=== PATIENT | male | born 1995 | race Caucasian/White ===

== ENCOUNTER 2016-09-18 21:42 | Emergency (ER) | payer MEDICAID ==
[2016-09-18 21:57] VITALS: BP 140/102
--- OUTSIDE RECORDS SUMMARY | 2016-09-18 22:16 | XMS REPORT | Continuity of Care Document ---
:1995 Author Organization [facility] ([facility]) Address [address] [place] [address] Phone [phone] Care Team Providers Name Role Phone Conrado Carson Primary Care Provider [phone] Source Comments This disclosure is being made pursuant to the Care Everywhere program, applicable federal and state laws, and may not contain all informaitonavailable regarding this patient.[facility] ([facility]) Active Allergies and Adverse Reactions Not on File Current Medications Prescription Sig. Disp. Refills Start Date End Date Status polyethylene glycol Take 17 g by mouth 2 1020 g 11 11/27/2009 Active 3350 (MIRALAX) 17 times daily. gram/dose powder Dissolve 4 capfuls (68 grams) in 32 oz clear liquid beverage.Take 8 ounces twice daily.Store unused portion in refrigerator. Indications: Constipation magnesium hydroxide Take 30 mL by mouth 1 Bottle 11 11/28/2009 Active (MILK OF MAGNESIA) 80 2 times daily. mg/mL suspension Indications: Constipation Active Problems Not on file Social History Tobacco Use Types Packs/Day Years Used Date Never Assessed Last Filed Vital Signs Vital Sign Reading Time Taken Blood Pressure 157/65 11/27/2009 1:19 PM CDT Pulse 80 11/27/2009 1:19 PM CDT Temperature 37.2 C (99 F) 11/27/2009 1:19 PM CDT Respiratory Rate 20 11/27/2009 1:19 PM CDT Height 1.693 m (5' 6.65") 11/27/2009 1:19 PM CDT Weight 90 kg (198 lb 6.6 oz) 11/27/2009 1:19 PM CDT Body Mass Index 31.4 11/27/2009 1:19 PM CDT Oxygen Saturation - - Plan of Care Health Maintenance Due Date Last Done Comments Hepatitis B Vaccine (1 of 3 - Primary Series) 1995 HPV Vaccine (1 of 3 - Male 3 Dose Series) 01/25/2004 Tdap Vaccine 01/25/2004 Lipid Disorder Screening 2011 MMR Vaccine 2011 Td Vaccine 2011 Varicella Vaccine (1 of 2 - Adult - No Evidence of 2011 Immunity) Influenza Vaccine: Seasonal (#1) 02/09/2016 Results from Last 3 Months Not on file
[2016-09-18] MEDS ORDERED: IBUPROFEN 400 MG TABLET ONE (22:34)
[2016-09-18] MEDS ORDERED: IBUPROFEN 400 MG TABLET PO ONE (22:34)
--- NOTE | 2016-09-18 22:34 | ERNOTE ---
Medical Problem HPI - Narrative Date of Service: 09/18/16 - General Chief Complaint: Flu Symptoms Time Seen by Provider: 09/18/16 22:09 Source: patient - Immun/Allergies/Home Medications Immunizations: IMMUNIZATION HX Immunizations Up to Date Yes History of Influenza Vaccine No Hx Pneumococcal Vaccination No Allergies/Adverse Reactions: Allergies cefazolin sodium [From Anc] Allergy (Severe, Verified 09/18/16 21:57) Anaphylaxis Home Medications: HOME MEDICATIONS Guaifenesin/Codeine Phosphate [Codeine-Guaifen 10-100 mg/5 ml] 120 ml PO BID PRN #1 liquid 09/18/16 [Last Taken Unknown] Ibuprofen [Motrin] 800 mg PO TID PRN #21 tab 09/18/16 [Last Taken Unknown] Tamiflu 09/18/16 [Last Taken Unknown] - History of Present History Narrative: Patient was diagnosed with Influenza A at the walk in today. He has cough, body aches , sore throat and nocturnal cough for two days. He is on Tamiflu starting today. He is here for cough and body aches. He has taken Tylenol but it is not helping his pain. He has had a low grade temp of 100.5 Review of Systems - Review of Systems Constitutional: Present: See HPI EYE: Present: no symptoms reported ENT: Present: See HPI Respiratory: Present: See HPI Cardiology: Present: no symptoms reported Gastrointestinal/Abdominal: Present: no symptoms reported Genitourinary: Present: no symptoms reported Musculoskeletal: Present: See HPI Skin: Present: no symptoms reported - Patient's Past Medical History Patient History - Medical: No pertinent hx Patient History - Cardiac/Respiratory: Asthma Patient History - Cancer: No Hx of Cancer Patient History - Surgical Procedures: Amputation Patient History - Other: None - Social History Living Situations: home Psych History: No pertinent hx Smoking Status: Never smoker - Immunizations Immunizations Up to Date: Yes Hx Pneumococcal Vaccination: No History of Influenza Vaccine: No Physical Exam - Physical Exam General Appearance: Present: wd/wn, alert, no apparent distress Eye Exam: Normal inspection: bilateral, PERRL: bilateral, EOMI: bilateral Ears, Nose, Throat: Present: normal ENT inspection Neck: Present: normal inspection, nontender, supple Respiratory: Present: no respiratory distress, normal breath sounds, no accessory muscle use, chest nontender, lungs clear Cardiovascular/Chest: Present: regular rate, rhythm, no murmur, normal peripheral pulses ED Progress - Vital Signs Patient's Vital Signs:: I have reviewed the patient's vital signs. Vital Signs: Vital Signs 09/18/16 21:51 Temperature 38.1 C H Pulse Rate 115 H Respiratory 16 Rate Blood Pressure 140/102 O2 Sat by Pulse 96 Oximetry - Progress/Reassessment Chief Complaint: Flu Symptoms Plan - Plan Plan: pt is already on Tamiflu. Will treat with Ibuprofen Departure - Departure Clinical Impression: Influenza A Disposition: Home self-care Condition: Good Prescriptions: Guaifenesin/Codeine Phosphate [Codeine-Guaifen 10-100 mg/5 ml] 120 ml PO BID PRN #1 liquid PRN Reason: Cough Ibuprofen [Motrin] 800 mg PO TID PRN #21 tab PRN Reason: Pain
== END 2016-09-18 22:43 | disposition home or self-care (01) ==
LOC: ER 21:42
DX: J10.1 Influenza due to other identified influenza virus with other respiratory manifestations (principal); Z89.9 Acquired absence of limb, unspecified